=== PATIENT | male | born 1970 | race Caucasian/White ===

== ENCOUNTER 2017-10-03 23:00 | Emergency (ER) | payer SELFPAY ==
[~2017-10-03] VITALS: Ht 162.6 cm; Wt 81.9 kg
[~2017-10-03 23:00] MED LIST: ASPI81EC97 PO; LISI-424 PO; METF850T PO; RANI150C PO
[2017-10-03 23:07] VITALS: BP 127/91
--- NOTE | 2017-10-03 23:23 | NUR ---
PT CAME C/O RIGHT EYE PAIN WITH REDNESS (11/06). 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 WASHED IT RIGHT AFTER THE INCIDENT. THE REDNESS AND PAIN GOT WORSEN TODAY SO CAME TODAY. PT STATED HE HAS DM AND HIGH CHOLESTEROL. RR EVEN AND UNLABORED. VS WITHOUT ACUTE DISTRESS. AFEBRILE. ER MD MADE AWARE.
--- NOTE | 2017-10-03 23:26 | NUR ---
PT MOVED TO CHAIR D
--- NOTE | 2017-10-03 23:27 | NUR ---
PT EVAL BY MANOLO HANNAH
[2017-10-03] MEDS ORDERED: TETRACAINE HCL/PF 0.5% OPTH 4 ML BTL ONE (23:49)
[2017-10-03] MEDS ORDERED: FLUORESCEIN OPTH STRIP 0.6 MG ONE (23:49)
[2017-10-04] MEDS ORDERED: TETRACAINE HCL/PF 0.5% OPTH 4 ML BTL OP ONE (00:05)
[2017-10-04] MEDS ORDERED: FLUORESCEIN OPTH STRIP 0.6 MG OP ONE (00:05)
[2017-10-04] MEDS ORDERED: GENTAMICIN OP 0.3% 10.5 MG/3.5 GM TUBE OP ONE (00:10)
[2017-10-04 00:45] VITALS: BP 122/89
--- NOTE | 2017-10-04 00:47 | NUR ---
Patient discharged with v/s stable. Written and verbal after care instructions given and explained. Patient alert, oriented and verbalized understanding of instructions. Ambulatory with steady gait. All questions addressed prior to discharge. ID band removed. Patient advised to follow up with PMD. Rx of GARAMYCIN 0.3% OINTMENT TID given. Patient educated on indication of medication including possible reaction and side effects. Opportunity to ask questions provided and answered.
== END 2017-10-04 00:45 | disposition home or self-care (01) ==
LOC: MED 23:00
DX: S05.01XA Injury of conjunctiva and corneal abrasion without foreign body, right eye, initial encounter (principal); R03.0 Elevated blood-pressure reading, without diagnosis of hypertension; E11.9 Type 2 diabetes mellitus without complications; Z79.84 Long term (current) use of oral hypoglycemic drugs; Z79.82 Long term (current) use of aspirin; Z79.899 Other long term (current) drug therapy; X58.XXXA Exposure to other specified factors, initial encounter; Y93.89 Activity, other specified; Y92.89 Other specified places as the place of occurrence of the external cause; Y99.8 Other external cause status
CPT/HCPCS: 99284